=== PATIENT | male | born 2000 | race Two or more races ===

== ENCOUNTER 2022-03-05 16:29 | Emergency (ER) | payer OTHER ==
[~2022-03-05] VITALS: Ht 182.9 cm; Wt 63.5 kg
[2022-03-05] MEDS ORDERED: TAMS0.4C PO (20:37)
== END 2022-03-05 20:50 | disposition home or self-care (01) ==
LOC: EMR PED 16:29 → ER 16:29 → EMR PED 16:57
DX: N20.9 Urinary calculus, unspecified (principal); N20.1 Calculus of ureter; Z20.822 Contact with and (suspected) exposure to COVID-19